=== PATIENT | female | born 1970 | race Caucasian/White ===

== ENCOUNTER 2016-07-09 15:39 | Emergency (ER) | payer OTHER ==
[2016-07-09 17:24] VITALS: BP 149/100
--- NOTE | 2016-07-09 17:33 | UC ---
Abdominal Pain Female HPI - HPI Summary HPI Summary: cough started around 4d ago. Dry, hacking. 2 or 3d ago she started vomiting in association with the cough. Vomiting countless times a day, gagging. Cough remains dry. Has felt severe body aches, headache, feverish (no measured temps) . Today mild diarrhea. No appetite but is drinking water. She is an insulin dependent diabetic. BG this AM was 120. No history of DKA, uses insulin pump. Multiple ill contacts. Trouble sleeping due to cough. Now when she coughs she has pain in right flank area. - History of Current Complaint Chief Complaint: UCGI Stated Complaint: COUGH,VOMITING Time Seen by Provider: 07/09/16 17:14 Hx Obtained From: Patient Onset/Duration: Gradual Onset, Lasting Days - 4 Timing: Constant Severity Initially: Mild Severity Currently: Moderate Location: Other - right flank area Radiates: No Aggravating Factor(s): Food Alleviating Factor(s): Nothing Associated Signs and Symptoms: Positive: Fever - not measured, Cough - dry, Chest Pain - right flank area, Decreased Appetite, Nausea, Vomiting - multiple times, associated with hacking cough, Diarrhea. Negative: Constipation, Blood in Stool, Urinary Symptoms, Vaginal Bleeding, Vaginal Discharge - Risk Factors Ectopic Risk Factor: Negative Ovarian Torsion Risk Factor: Negative Allergies/Adverse Reactions: Allergies Allergy/AdvReac Type Severity Reaction Status Date / Time No Known Allergies Allergy Verified 04/11/16 16:19 PMH/Surg Hx/FS Hx/Imm Hx Endocrine History Of: Reports: Diabetes - insulin dependent - Surgical History Surgical History: Yes Surgery Procedure, Year, and Place: x3 c section. left shoulder mass removal - Family History Known Family History: Positive: Cardiac Disease, Hypertension, Diabetes - Social History Occupation: Employed Full-time Lives: With Family Alcohol Use: None Substance Use Type: None Smoking Status (MU): Never Smoked Tobacco Review of Systems Constitutional: Fever, Chills, Fatigue Skin: Negative Eyes: Negative ENT: Sore Throat, Nasal Discharge Respiratory: Cough Cardiovascular: Negative Gastrointestinal: Vomiting Genitourinary: Negative Motor: Negative Neurovascular: Negative Musculoskeletal: Myalgia Neurological: Headache, Weakness Psychological: Negative All Other Systems Reviewed And Are Negative: Yes Physical Exam Triage Information Reviewed: Yes Appearance: Well-Appearing, Well-Nourished, Pain Distress - on arrival, constant coughing and gagging with occasional vomiting. Could not seem to stop coughing and vomiting. HOwever, when engaged in conversation, she stops coughing and gagging and vomiting. She present completely anxious, yelling that she wants to go to work and get to her son's lacr[employer]rowd[employer]ling game, occasionally tearful , very histrionic, can't sit still Vital Signs: Initial Vital Signs Temp 97.4 F 07/09/16 17:06 Pulse 139 07/09/16 17:06 Resp 24 07/09/16 17:06 BP 149/100 07/09/16 17:06 Pulse Ox 97 07/09/16 17:06 Vital Signs Reviewed: Yes Eye Exam: Normal Eyes: Positive: Conjunctiva Clear ENT: Positive: Hearing grossly normal, Pharynx normal, Nasal congestion, TMs normal, Muffled/hoarse voice - hoarse Neck exam: Normal Neck: Positive: Supple Respiratory Exam: Normal Respiratory: Positive: Lungs clear, Normal breath sounds, No respiratory distress, No accessory muscle use, Other: - very frequent dry cough on arrival Cardiovascular Exam: Normal Abdominal Exam: Normal Abdomen Description: Positive: Nontender, No Organomegaly, Soft Musculoskeletal Exam: Normal Neurological Exam: Normal Neurological: Positive: Alert, Muscle Tone Normal Psychological Exam: Other - appears completely manic and anxious. Skin Exam: Normal Diagnostics - Laboratory Diagnostic Studies Completed/Ordered: BG 161. xray neg Re-Evaluation - Re-Evaluation First Eval Re-Evaluation Time: 18:38 Change: Improved Comment: returned from XRay. Pleasant, joking. No coughing or retching now. BG 161. Abd Pain Female Course/Dx - Differential Dx/Diagnosis Differential Diagnosis: Pneumonia Provider Diagnoses: gastroenteritis Discharge - Discharge Plan Condition: Stable Disposition: HOME Prescriptions: Promethazine TAB* [Phenergan TAB*] 25 mg PO Q8H PRN #14 tab PRN Reason: Nausea Patient Education Materials: Gastroenteritis (ED) Forms: *Work Release Referrals: MADELAINE Morales [Primary Care Provider] -
--- NOTE | 2016-07-09 18:44 | RAD ---
INDICATION: Cough. Pain. COMPARISON: None TECHNIQUE: PA and lateral dual-energy views were obtained. FINDINGS: Bones/Soft Tissues: There are no acute bony findings. There is a minor scoliotic deformity. Cardiomediastinal: The cardiomediastinal silhouette is normal. Lungs: There are no infiltrates. Pleura: There are no pleural effusions. Other: None IMPRESSION: NO ACTIVE DISEASE.
[2016-07-09] MEDS ORDERED: Promethazine TAB* 25 MG PO ONE (18:53)
== END 2016-07-09 19:17 | disposition home or self-care (01) ==
LOC: UCCORT 15:39
DX: K52.9 Noninfective gastroenteritis and colitis, unspecified (principal); R05 Cough; R50.9 Fever, unspecified; E11.9 Type 2 diabetes mellitus without complications; Z96.41 Presence of insulin pump (external) (internal)
CPT/HCPCS: 71020; 87086; 87502; 99212; G0463

== ENCOUNTER 2016-08-26 08:53 | Emergency (ER) | payer OTHER ==
[2016-08-26 09:21] VITALS: BP 190/111
--- NOTE | 2016-08-26 09:50 | UC ---
Eye Complaint HPI - HPI Summary HPI Summary: + ITCHY EYE X 3 DAYS , + REDNESS AROUND BOTH EYE , NO EYE PAIN , NO EYE DISCHARGE , NO CHANGE IN VISION - History of Current Complaint Chief Complaint: UCEye Stated Complaint: EYE COMPLAINT Time Seen by Provider: 08/26/16 09:36 Hx Obtained From: Patient Hx Last Menstrual Period: age 39 Onset/Duration: Gradual Onset, Lasting Days - 3, Still Present Timing: Constant Severity Initially: Moderate Severity Currently: Moderate Location of Injury: Eye Lid (lower), Eye Lid (upper) Aggravating Factor(s): Other Alleviating Factor(s): Nothing Associated Signs And Symptoms: Positive: Negative - Allergies/Home Medications Allergies/Adverse Reactions: Allergies Allergy/AdvReac Type Severity Reaction Status Date / Time No Known Allergies Allergy Verified 08/26/16 09:21 Home Medications: Home Medications [place] 1 tab PO DAILY 08/26/16 [History Confirmed 08/26/16] PMH/Surg Hx/FS Hx/Imm Hx Endocrine History Of: Reports: Diabetes - insulin dependent - Surgical History Surgical History: Yes Surgery Procedure, Year, and Place: x3 c section. left shoulder mass removal - Family History Known Family History: Positive: Cardiac Disease, Hypertension, Diabetes - Social History Alcohol Use: None Substance Use Type: None Smoking Status (MU): Current Some Day Smoker Review of Systems Constitutional: Negative Skin: Rash - BILATERAL EYES Eyes: Negative ENT: Negative Respiratory: Negative Cardiovascular: Negative All Other Systems Reviewed And Are Negative: Yes Physical Exam Triage Information Reviewed: Yes Appearance: Well-Appearing, No Pain Distress, Well-Nourished Vital Signs: Initial Vital Signs Temp 99.1 F 08/26/16 09:13 Pulse 88 08/26/16 09:13 Resp 18 08/26/16 09:13 BP 190/111 08/26/16 09:13 Vital Signs Reviewed: Yes Eyes: Positive: Conjunctiva Clear, Other: - + BILATERAL MACULAR RASH PERIORBITAL AREA ENT Exam: Normal ENT: Positive: Normal ENT inspection, Hearing grossly normal, Pharynx normal Neck exam: Normal Neck: Positive: Supple, Nontender, No Lymphadenopathy Respiratory: Positive: Chest non-tender, Lungs clear, Normal breath sounds Cardiovascular: Positive: RRR, No Murmur, Pulses Normal Eye Complaint Course/Dx - Differential Dx/Diagnosis Provider Diagnoses: PERIORBITAL ECZEMA Discharge - Discharge Plan Condition: Stable Disposition: HOME Prescriptions: Triamcinolone 0.1% CREAM (NF) [Kenalog 0.1% Cream (NF)] 1 applic TOPICAL BID # 30 gm Patient Education Materials: Eczema (ED) Referrals: MADELAINE Morales [Primary Care Provider] - 7 Days
== END 2016-08-26 09:55 | disposition home or self-care (01) ==
LOC: UCCORT 08:53
DX: H01.133 Eczematous dermatitis of right eye, unspecified eyelid (principal); H01.136 Eczematous dermatitis of left eye, unspecified eyelid; E11.9 Type 2 diabetes mellitus without complications; Z79.4 Long term (current) use of insulin; Z72.0 Tobacco use
CPT/HCPCS: 99212; G0463

== ENCOUNTER 2016-09-01 08:30 | Emergency (ER) | payer OTHER ==
[2016-09-01 09:11] VITALS: BP 128/94
[2016-09-01] MEDS ORDERED: Ibuprofen TAB* 600 MG PO ONE (09:12)
--- NOTE | 2016-09-01 09:15 | UC ---
Lower Extremity/Ankle HPI - HPI Summary HPI Summary: stubbed left pinky toe 3 days ago. there has been bruising and tenderness since. She then stubbed her foot again two nights ago. no other complaints of the ankle or leg. - History of Current Complaint Chief Complaint: UCLowerExtremity Stated Complaint: LEFT FOOT/PINKY TOE PAIN Time Seen by Provider: 09/01/16 09:06 Hx Obtained From: Patient Hx Last Menstrual Period: age 39 ?: No Onset/Duration: Sudden Onset Severity Initially: Severe Severity Currently: Moderate Aggravating Factor(s): Standing, Ambulation Alleviating Factor(s): Rest, Elevation Able to Bear Weight: Yes - Risk Factors Gout Risk Factors: Negative DVT Risk Factors: Negative Septic Arthritis Risk Factor: Negative - Allergies/Home Medications Allergies/Adverse Reactions: Allergies Allergy/AdvReac Type Severity Reaction Status Date / Time No Known Allergies Allergy Verified 09/01/16 09:01 Home Medications: Home Medications Acetaminophen TAB* [Tylenol TAB*] 650 mg PO Q4H PRN 09/01/16 [History Confirmed 09/01/16] PMH/Surg Hx/FS Hx/Imm Hx Endocrine History Of: Reports: Diabetes - insulin dependent - Surgical History Surgical History: Yes Surgery Procedure, Year, and Place: x3 c section. left shoulder mass removal - Family History Known Family History: Positive: Cardiac Disease, Hypertension, Diabetes - Social History Alcohol Use: None Substance Use Type: None Smoking Status (MU): Current Some Day Smoker Type: Cigarettes Amount Used/How Often: 2 CIGS PER DAY Review of Systems All Other Systems Reviewed And Are Negative: Yes Physical Exam Triage Information Reviewed: Yes Appearance: Well-Appearing, Well-Nourished, Pain Distress Vital Signs: Initial Vital Signs Temp 98.5 F 09/01/16 09:03 Pulse 89 09/01/16 09:03 Resp 18 09/01/16 09:03 BP 128/94 09/01/16 09:03 Pulse Ox 97 09/01/16 09:03 Vital Signs Reviewed: Yes Eye Exam: Normal Eyes: Positive: Conjunctiva Clear. Negative: Conjunctiva Inflamed ENT Exam: Normal ENT: Positive: Normal ENT inspection, Hearing grossly normal, Pharynx normal. Negative: Pharyngeal erythema, Nasal congestion, Nasal drainage Neck exam: Normal Neck: Positive: Supple, Nontender, No Lymphadenopathy. Negative: Nuchal Rigidity, Tenderness @, Enlarged Nodes @ Respiratory: Positive: Lungs clear, Normal breath sounds, No respiratory distress, No accessory muscle use. Negative: Respiratory distress Cardiovascular Exam: Normal Cardiovascular: Positive: RRR, No Murmur, Pulses Normal Abdominal Exam: Normal Abdomen Description: Positive: Nontender, No Organomegaly, Soft Musculoskeletal: Positive: Edema @ Neurological: Positive: Alert, Muscle Tone Normal. Negative: Fatigued Psychological Exam: Normal - left foot swelling and bruising lateral foot and toes 3-5. no ankle, heel tenderness. Lower Extremity Course/Dx - Differential Dx/Diagnosis Differential Diagnosis/HQI/PQRI: Arthritis, Bursitis, Cellulitis, Contusion, Dislocation, Foreign Body, Fracture (Closed), Fracture (Open), Septic Arthritis , Sprain, Strain, Tendonitis, Tenosynovitis Provider Diagnoses: left 5th phalynx fracture of foot. Discharge - Discharge Plan Condition: Stable Disposition: HOME Patient Education Materials: Toe Fracture (ED) Referrals: MADELAINE Morales [Primary Care Provider] - Paul Santiago MD [Medical Doctor] -
--- NOTE | 2016-09-01 09:35 | RAD ---
INDICATION: Left foot injury. TECHNIQUE: 3 views of the left foot were obtained. FINDINGS: There is a transverse fracture of the proximal aspect of the fifth proximal phalanx. The distal fragment is displaced one cortical diameter medial relative to the proximal fragment. No other fractures are seen. Joint spaces appear maintained. IMPRESSION: SLIGHTLY DISPLACED FRACTURE OF THE FIFTH PROXIMAL PHALANX.
== END 2016-09-01 10:11 | disposition home or self-care (01) ==
LOC: UCCORT 08:30
DX: S92.512A Displaced fracture of proximal phalanx of left lesser toe(s), initial encounter for closed fracture (principal); W22.8XXA Striking against or struck by other objects, initial encounter; Y93.9 Activity, unspecified; Y92.9 Unspecified place or not applicable; E11.9 Type 2 diabetes mellitus without complications; Z79.4 Long term (current) use of insulin; R03.0 Elevated blood-pressure reading, without diagnosis of hypertension; Z72.0 Tobacco use
CPT/HCPCS: 99213; A9270-GY; G0463

== ENCOUNTER 2017-03-20 14:40 | Emergency (ER) | payer OTHER ==
--- NOTE | 2017-03-20 14:53 | UC ---
Truncal Trauma HPI - HPI Summary HPI Summary: 46 YEAR OLD FEMALE PRESENTS WITH SEVERE LEFT SIDED RIB PAIN WITH INSPIRATION SECONDARY TO A PREVIOUS FALL WITH RIB FRACTURES. I WILL SEN DHER TO THE ER FOR CT SCAN. - History Of Current Complaint Stated Complaint: SOB,LEFT RIB PAIN Time Seen by Provider: 03/20/17 14:52 Hx Obtained From: Patient Hx Last Menstrual Period: age 39 Onset/Duration: Sudden Onset Severity Initially: Moderate Severity Currently: Moderate Pain Scale Used: 0-10 Numeric - 8 Mechanism Of Injury: Fall From A Standing Position - Allergies/Home Medications Allergies/Adverse Reactions: Allergies Allergy/AdvReac Type Severity Reaction Status Date / Time No Known Allergies Allergy Verified 03/20/17 14:58 Home Medications: Home Medications Citalopram TAB* [CeleXA TAB*] 20 mg PO DAILY 03/20/17 [History Confirmed ] Vitamin B Complex CAP* [B Complex CAP*] 1 cap PO DAILY 03/20/17 [History Confirmed 03/20/17] hydrOXYzine HCL TAB* [Atarax 25 MG TAB*] 25 mg PO TID PRN 03/20/17 [History Confirmed 03/20/17] traZODone TAB* [Desyrel TAB*] 100 mg PO BEDTIME 03/20/17 [History Confirmed 11/29] PMH/Surg Hx/FS Hx/Imm Hx Previously Healthy: Yes - Surgical History Surgical History: Yes Surgery Procedure, Year, and Place: x3 c section. left shoulder mass removal - Family History Known Family History: Positive: Cardiac Disease, Hypertension, Diabetes - Social History Alcohol Use: None Substance Use Type: None Smoking Status (MU): Current Some Day Smoker Type: Cigarettes Amount Used/How Often: 2 CIGS PER DAY Review of Systems Constitutional: Negative Skin: Negative Eyes: Negative ENT: Negative Respiratory: Shortness Of Breath, Other - LEFT SIDED RIB PAIN Cardiovascular: Negative Gastrointestinal: Negative Genitourinary: Negative Motor: Negative Neurovascular: Negative Musculoskeletal: Negative Neurological: Negative Psychological: Negative All Other Systems Reviewed And Are Negative: Yes Physical Exam Triage Information Reviewed: Yes Vital Signs Reviewed: Yes Eye Exam: Normal ENT Exam: Normal Dental Exam: Normal Neck exam: Normal Neck: Positive: 1 Respiratory: Positive: Decreased breath sounds, Other: - LEFT SIDED RIB PAIN Cardiovascular Exam: Normal Abdominal Exam: Normal Musculoskeletal Exam: Normal Neurological Exam: Normal Psychological Exam: Normal Skin Exam: Normal Truncal Trauma Course/Dx - Differential Dx/Diagnosis Provider Diagnoses: SHORTNESS OF BREATH. LEFT SIDED RIB PAIN Discharge - Discharge Plan Condition: Stable Disposition: HOME Patient Education Materials: Rib Contusion (ED), Rib Fracture (ED) Referrals: MADELAINE Morales [Primary Care Provider] - Additional Instructions: PATIENT SUGGESTED TO GO TO ER FOR SEVERE LEFT SIDED RIB PAIN AND SHORTNESS OF BREATH.
[2017-03-20 14:58] VITALS: BP 139/83
== END 2017-03-20 15:08 | disposition home or self-care (01) ==
LOC: UCCORT 14:40
DX: R07.81 Pleurodynia (principal); R06.02 Shortness of breath; F17.210 Nicotine dependence, cigarettes, uncomplicated
CPT/HCPCS: 99212; G0463